=== PATIENT | female | born 1960 | race Caucasian/White ===

== ENCOUNTER 2017-05-13 07:30 | Inpatient (IN) ==
--- OUTSIDE RECORDS SUMMARY | 2017-12-02 05:41 | External Medical Summary | Clinical Summary ---
:1960 Author Organization [facility] Address [address] [place] [address] Care Team Providers Name Role Phone Bhumi Huston APRN Primary Care Provider Source Comments Some departments are not documenting in the electronic medical record. If you do not see the information that you expected, contact Release of Information in the Health Information Management department at [phone] for further assistance in locating additional records.[facility] Current Medications Prescription Sig. Disp. Refills Start Date End Date Status HYDROcodone/acetaminophen TAKE ONE TABLET BY 0 04/21/2017 Active (NORCO) 7.5/325 mg tablet MOUTH THREE TIMES DAILY NEEDED metFORMIN (GLUCOPHAGE) TAKE ONE TABLET BY 1 04/16/2017 Active 500 mg tablet MOUTH TWICE DAILY busPIRone (BUSPAR) 10 mg 8 04/16/2017 Active tablet ibuprofen (MOTRIN) 800 mg TAKE ONE TABLET BY 5 04/16/2017 Active tablet MOUTH EVERY 8 HOURS NEEDED PROAIR HFA 90 INHALE TWO PUFFS 11 04/16/2017 Active mcg/actuation inhaler FOUR TIMES DAILY NEEDED VITAMIN D 50,000 unit 4 04/16/2017 Active capsule acyclovir (ZOVIRAX) 800 TAKE ONE TABLET BY 1 02/14/2017 Active mg tablet MOUTH FOUR TIMES DAILY FOR 5 DAYS Active Problems Problem Noted Date Vulvar cancer (HCC) 05/05/2017 Overview: Family History Medical History Relation Name Comments Depression Brother committed suicide Diabetes Brother Depression Father Heart Disease Father Depression Mother Diabetes Mother Stroke Mother Relation Name Status Comments Brother Father Mother Social History Tobacco Use Types Packs/Day Years Used Date Current Every Day Smoker Cigarettes 1 45 Smokeless Tobacco: Never Used Tobacco Cessation: Ready to Quit: No; Counseling Given: Yes Alcohol Use Drinks/Week oz/Week Comments Yes rarely, once/twice per year Sex Assigned at Date Recorded Not on file Last Filed Vital Signs Vital Sign Reading Time Taken Blood Pressure 152/76 05/06/2017 1:25 PM CDT Pulse 78 05/06/2017 1:25 PM CDT Temperature 36.9 C (98.4 F) 05/06/2017 1:25 PM CDT Respiratory Rate 18 05/06/2017 1:25 PM CDT Oxygen Saturation 99% 05/06/2017 1:25 PM CDT Inhaled Oxygen Concentration - - Weight 88.1 kg (194 lb 3.2 oz) 05/06/2017 1:25 PM CDT Height 167.6 cm (5' 6") 05/06/2017 1:25 PM CDT Body Mass Index 31.34 05/06/2017 1:25 PM CDT Plan of Treatment Health Maintenance Due Date Last Done Comments HEPATITIS C SCREENING 1960 PHYSICAL (COMPREHENSIVE) EXAM 1968 PERTUSSIS VACCINE 1972 HIV SCREENING 1976 TETANUS VACCINE 1978 CERVICAL CANCER SCREENING 1991 BREAST CANCER SCREENING 2001 COLORECTAL CANCER SCREENING 2011 INFLUENZA VACCINE 04/20/2018
--- OUTSIDE RECORDS SUMMARY | 2017-12-02 05:41 | External Medical Summary | Continuity of Care Document ---
:1960 Author Organization [facility] Care Team Providers Name Role Phone [employer] Unavailable Unavailable Encounters Location Location Encounter Encounter Reason Attending ADM DC Status Source Details Type Number For Provider Date Date Visit CA SERIES [id number] CHITO ANDERSEN 05/06 05/06 Active The /2016 [facility] OP SURGERY NAN Active The [facility]
[2017-12-02 05:50] VITALS: BMI 28.8
[2017-12-02] MEDS ORDERED: MELOXICAM 15 MG TABLET PO ONE (06:00)
[2017-12-02] MEDS ORDERED: ACETAMINOPHEN 500 MG TABLET PO ONE (06:00)
[2017-12-02] MEDS ORDERED: FAMOTIDINE PB 20 MG/50 ML BAG IV ONE (06:00)
[2017-12-02] MEDS ORDERED: METOCLOPRAMIDE 10mg/2ml INJECTION IVP ONE (06:00)
[2017-12-02] MEDS ORDERED: TRANEXAMIC ACID 1,000 MG in NS 100 ML IV ONE ×2 (06:00→07:00)
[2017-12-02] MEDS ORDERED: LIDOCAINE 1% (10mg/ml) 2mL INJ PF SDV ID ONE (06:00)
[2017-12-02] MEDS ORDERED: ONDANSETRON 4 MG/2 ML INJECTION IVP ONE (06:00)
[2017-12-02] MEDS: LR 1,000 ML IV SCH ×3 (06:10→09:16)
[2017-12-02] MEDS: NOZIN NASAL SWAB NAS SCH ×5 (06:19→22:07)
[2017-12-02] MEDS ORDERED: VANCOMYCIN 1,000 MG INJECTION ONE (06:35)
[2017-12-02] MEDS ORDERED: FentaNYL 250 MCG/5 ML INJECTION ONE (06:52)
[2017-12-02] MEDS ORDERED: KETAMINE 500 MG/10 ML INJECTION ONE (06:52)
[2017-12-02] MEDS ORDERED: MIDAZOLAM 2mg/2ml INJECTION ONE (06:53)
[2017-12-02] MEDS ORDERED: VANCOMYCIN 1,000 MG INJECTION IAR ONE (06:55)
[2017-12-02] MEDS ORDERED: LIDOCAINE 2% (100mg/5mL) 5ml PF SDV ONE (06:55)
[2017-12-02] MEDS ORDERED: BUPIVACAINE 0.5% (5mg/ml) PF 30ml INJ SDV ONE (06:55)
[2017-12-02] MEDS ORDERED: BUPIVACAINE 0.75%/DEXTROSE 8.5% SPINAL 2 ML AMPULE IJ ONE (06:55)
[2017-12-02] MEDS ORDERED: CEFAZOLIN 1 G INJECTION IVP ONE (07:00)
[2017-12-02] MEDS ORDERED: PROPOFOL 20 ML ONE (07:16)
[2017-12-02] MEDS ORDERED: EPINEPHrine PF 0.25 MG, BUPIVACAINE 0.25% PF 30 ML, KETOROLAC INJ 60 MG in NS 30 ML OPSITE ONE (08:00)
[2017-12-02] MEDS ORDERED: SALINE FLUSH 10ml SYRINGE IV PRN (08:27)
--- NOTE | 2017-12-02 08:52 | Operative Note ---
- Procedure Preoperative Diagnosis: Right hip primary degenerative joint disease Postoperative Diagnosis: Same as preoperative diagnosis. Surgeon: Kobe Dixon MD Senior Care Provider: Silvio Demarco Complications: None. Anesthesia: Spinal. Estimated Blood Loss: See Anesthesia Record. Fluids: Please see Anesthesia Record. Description of Procedure: Mrs. Reyes and her right hip were identified and marked in the preoperative holding area. She was brought back to the operating suite and spinal anesthetic was administered. She was then placed in a lateral decubitus position with her right hip up. The right lower extremity was prepped and draped in my normal sterile fashion. She was slightly short on the right at the knees as expected. Timeout was performed. The [employer] robotic arm was used to assist with the surgery. A pelvic array was placed into the iliac crest through three small incisions. A direct superior approach was utilized. An approximately 12 cm incision was made in the skin and dissection carried down to the muscle fascia which was then split in line with skin incision. The short external rotators were identified and tagged and detached. A capsulotomy was performed and the hip dislocated. A femoral neck osteotomy was performed at the pre-templated level measuring down from the femoral head 60mm. The head was removed and acetabulum exposed. Labrum was removed. The acetabulum was then registered with the robot. The robotic arm was then used to ream with a D1 reamer. The robot then was again used to place a to 2 Trident cup in 40 of tilt and 25 of anteversion. A liner was then placed. The proximal femur was exposed and prepared with a cookie cutter followed by reaming and broaching to a size 2. After trialing we settled on a +5 head. After thorough irrigation a final Accolade 2 size 2 stem with 127 neck was placed. Leg length and offset were checked with the robot and were good. A final +5 ceramic head was placed and the hip reduced. Betadine solution was used to irrigate throughout the case. It was followed by normal saline irrigation. Joint cocktail was injected throughout soft tissue. The capsulotomy was repaired with Ethibond. Short external rotators were also repaired with Ethibond. 1 g of vancomycin powder was placed into the wound. The muscle fascia was then repaired with #1 Vicryl. I then left my bilingual legal assistant to close the subcutaneous tissue with 2-0 Vicryl followed by running 4-0 Monocryl skin followed by Dermabond and a sterile dressing. The patient with any placed back into supine position and taken to recovery room in the care of anesthesia.
[2017-12-02] MEDS ORDERED: ALBUTEROL/IPRATROPIUM 2.5mg-0.5mg/3ml NEB AEROSOL ONE (09:10)
[2017-12-02] MEDS ORDERED: MIDAZOLAM 2mg/2ml INJECTION IVP PRN (09:19)
--- NOTE | 2017-12-02 10:09 | Anesthesia Postoperative Note ---
- Date and Time Date: 12/02/17 Time: 09:45 - Status Patient Participated in Evaluation: Patient Participated in Person Vital Signs: Temperature 97.1 F 12/02/17 09:40 Pulse Rate 61 12/02/17 10:05 Respiratory Rate 15 12/02/17 10:05 Blood Pressure 98/55 12/02/17 10:05 Pulse Oximetry 96 12/02/17 10:05 Respiratory Function: Airway Patent Cardiovascular Function: Regular Pulse EKG: Sinus Rhythm Mental Status: Alert and Oriented Pain Intensity: 0 Hydration: IV Infusing Complications During Recover: None Apparent - Follow-Up Instructions Instructions: Per Surgeon
--- NOTE | 2017-12-02 10:10 | XRay Report ---
Indication: postoperative image PROCEDURE: XR pelvis w/ 1 view RT hip: Encounter: Initial Comparison: CT dated November 24, 2017 Findings: Postoperative changes of right total hip replacement are seen. There is expected postoperative subcutaneous gas. No evidence of hardware failure or acute fracture. No retained radiopaque surgical instruments or sponges seen. Impression: New right total hip prosthesis without evidence of immediate complication. .
--- NOTE | 2017-12-02 10:11 | XRay Report ---
Indication: Cough and wheezing post op. PROCEDURE: XR chest 1V: Encounter: Initial Comparison: February 24, 2017 Findings: New airspace opacity in the left mid to lower lung field. Right lung is clear. No pleural effusion or pneumothorax. Heart size and mediastinal contours are within normal limits. Impression: Left-sided airspace opacity could represent atelectasis, aspiration or pneumonia. .
[2017-12-02] MEDS ORDERED: ALBUTEROL 2.5mg/3ml (0.083%) NEB AEROSOL PRN (10:41)
[2017-12-02] MEDS ORDERED: INSULIN ASPART 100unit/ml INJECTION SQ PRN (10:41)
[2017-12-02] MEDS ORDERED: NOZIN NASAL SWAB NAS ONE (10:41)
[2017-12-02] MEDS ORDERED: ONDANSETRON 4 MG/2 ML INJECTION IVP PRN (10:41)
[2017-12-02] MEDS ORDERED: DiphenhydrAMINE 25 MG CAPSULE PO PRN (10:41)
[2017-12-02] MEDS ORDERED: LORazepam 1 MG TABLET PO PRN (10:41)
[2017-12-02] MEDS ORDERED: DiphenhydrAMINE 50 MG/ML INJECTION IVP PRN (10:41)
[2017-12-02] MEDS: NS 1,000 ML IV SCH (10:46)
[2017-12-02] MEDS: Oxycodone *IR* 5 MG TABLET PO PRN ×4 (11:55→22:08)
[2017-12-02] MEDS: BUSPIRONE 10 MG TABLET PO SCH ×3 (12:57→22:08)
[2017-12-02] MEDS: ACETAMINOPHEN 325 MG TABLET PO SCH ×3 (12:57→22:08)
[2017-12-02] MEDS ORDERED: WARFARIN - PHARMACY CONSULT MC ONE (14:02)
--- NOTE | 2017-12-02 14:18 | Consult Note ---
Consult Information - Data of Consult Consult date: 12/02/17 Requesting Physician: Keny Dixon MD Primary Care Provider: Bhumi Huston APRN - Consult Narrative Reason for consult: SOA, cough History of present illness: Patient is a 57 yo who had TRHA today by Dr. Dixon. She had some coughing during the case and on her way to recovery she developed significant SOA and wheezing and required 3L of O2. She was given some Versed and her sxs resolved. She has already had a CXR performed showing left-sided airspace opacity which could represent atelectasis, aspiration or pneumonia. Currently pt states her breathing is normal. She thinks she had a panic attack. She takes Buspar routinely for anxiety. Patient is very agitated with me asking questions and asks me to leave the room. At this time, Dr. Dixon came in and told her everything went fine with surgery. Following that news, she was a bit more forthcoming with information and at least let me examine her. Past Medical History Medical History: Medical History (Last Reviewed 11/29/17 @ 11:00 by Keny Dixon MD) Anxiety Depression Sleep apnea Vulvar cancer Medical History Updates: DM Type 2. Vit D def Surgical History: Hysterectomy 46, Lt Carpal Tunnel 46, Hemivulvectomy for Vulvar Cancer, Chemotherapy Port Insertion, Eyes 54, Carpal Tunnel Right 56, RTHA by Dr. Dixon 12/05, Tonsillectomy Family History: Family History Mother Diabetes FH: heart attack Stroke Father Emphysema/COPD Family History: As Above - Social History Smoking status: Current every day smoker Alcohol intake frequency: does not drink Household members: none Current occupational status: employed Social history: PCP-Bhumi Huston APRN Review of Systems ROS unobtainable: other (due to pt refusal although she does report she feels her breathing is ok) Medications Home Medications Medication Instructions Recorded Confirmed Type Glucophage (metformin) 500 mg 500 mg PO BID 30 Days #60 tab 02/19/17 12/02/17 History tablet Ibuprofen 800 mg tablet 800 mg PO Q8H PRN 30 Days #90 tab 02/19/17 12/02/17 History [place] 7.5 mg-acetaminophen 325 mg 1 tab PO TID PRN 30 Days #90 tab 02/19/17 History tablet albuterol sulfate HFA 90 1 - 2 spray INH Q4HPRN PRN 25 Days 02/19/17 12/02/17 History mcg/actuation aerosol inhaler #9 Buspirone [Buspar] 20 mg PO QID 11/27/17 12/02/17 History Fenofibrate Nanocrystallized 48 mg PO DAILY 11/27/17 12/02/17 History [Fenofibrate] Docusate Sodium [Colace] 1 cap PO BID 12/02/17 12/02/17 History Ergocalciferol (Vitamin D2) 1 cap PO WEEKLY 12/02/17 12/02/17 History [Vitamin D2] Allergies Allergy/AdvReac Type Severity Reaction Status Date / Time chlorzoxazone Allergy Unknown rash, Verified 12/02/17 06:02 [From Parafon Forte DSC] swelling bupropion [From Wellbutrin] AdvReac Unknown Nausea Verified 12/02/17 06:02 Exam Vital Signs: Temperature 98.4 F 12/02/17 12:27 Pulse Rate 72 12/02/17 13:57 Respiratory Rate 16 12/02/17 13:57 Blood Pressure 139/87 12/02/17 12:27 Pulse Oximetry 97 12/02/17 13:57 Height/Weight/BMI: Height 1.68 m Weight 81.2 kg Body Mass Index 28.8 - Constitutional Present: no acute distress, well nourished, well developed - Routine HEENT Exam Head: Present: normocephalic, atraumatic - Routine Neck Exam Present: supple. Absent: lymphadenopathy - Routine Respiratory Exam Present: CTA bilaterally. Absent: wheezes - Routine Cardiovascular Exam Present: RRR, no murmur - Routine Extremities Exam Present: no edema - Routine Skin Exam Present: dry, warm - Routine Neurological Exam Present: alert, oriented X3, CN II-XII intact - Routine Psychiatric Exam Present: anxious, agitated Results - Labs CBC & Chem 7: 12/02/17 05:54 - Imaging and Cardiology Chest x-ray Additional comments: Date of Exam: 12/02/17 Indication: Cough and wheezing post op. PROCEDURE: XR chest 1V: Findings: New airspace opacity in the left mid to lower lung field. Right lung is clear. No pleural effusion or pneumothorax. Heart size and mediastinal contours are within normal limits. Impression: Left-sided airspace opacity could represent atelectasis, aspiration or pneumonia. Assessment and Plan (1) Shortness of breath Current visit: Yes Status: Acute Assessment and Plan: Assessment Shortness of breath with hypoxia - suspect panic attack as symptoms resolved with relaxation of patient. CXR showing left-sided airspace opacity which could represent atelectasis, aspiration or pneumonia. DM Type 2 KARMEN Depression/Anxiety HLD H/o GERD H/o vulvar cancer (radiation and chemo) Vit D deficiency Plan Start Duonebs and encouraged her to use her IS. Will repeat CXR in am. Check CBC now and in the am. Hold off on atbx at present as pt had a few doses w/ surgery and she is afebrile. Most likely her findings on CXR are r/t atelectasis and her SOA was likely r/t panic attack. Lorazepam prn anxiety sxs. Continue Buspar. Will continue to follow the patient. Thanks for the consult. DVT Prophylaxis: Lovenox Resuscitation Status: Full Code - Physician Narrative Narrative: Date: 12/02/17 Time: 2033 Pt not cooperative with hx or exam. Pt denies any acute complaints and reports she's doing fine other than her hip. Pt denies any cough, sob. Would agree with holding off on any abx as pt seems to be doing well. Hospital Course Summary Disclaimer: The visit summary below is not to be considered part of the above Progress Note.
--- NOTE | 2017-12-02 15:11 | Pharmacy Consult ---
Pharmacy Consult-Warfarin - Consult Information Warfarin protocol: day 1 57 y.o. female post op ortho surgery. Warfarin per pharmacy protocol ordered for post op DVT prophylaxis. Patient is warfarin naive. goal INR range= 1.5 to 2.5 Will give Warfarin 4 mg po x1 dose today. Pharmacy will monitor and adjust dose as needed. Thank you, Delicia Naqvi [facility]
[2017-12-02] MEDS: CEFAZOLIN 2 G in NS 100 ML IV SCH ×2 (15:54→23:24)
[2017-12-02] MEDS ORDERED: WARFARIN 4 MG TABLET PO ONE (16:00)
[2017-12-02] MEDS: NAPROXEN 220 MG TABLET PO SCH (17:25)
[2017-12-02] MEDS ORDERED: NICOTINE 21 MG PATCH TD PRN (18:57)
[2017-12-02] MEDS ORDERED: SENNOSIDES 8.6 MG TABLET PO SCH (21:00)
[2017-12-02] MEDS ORDERED: ASPIRIN *EC* 81 MG TABLET PO SCH (21:00)
[2017-12-02] MEDS: ENOXAPARIN 40 MG/0.4 ML INJECTION SQ SCH (22:07)
[2017-12-02] MEDS: DOCUSATE SODIUM 100 MG CAPSULE PO SCH (22:08)
[2017-12-02] MEDS: ALBUTEROL/IPRATROPIUM 2.5mg-0.5mg/3ml NEB AEROSOL SCH ×2 (22:29→23:59)
[2017-12-02 23:32] VITALS: BP 113/66
[2017-12-03] MEDS: NS 1,000 ML IV SCH (00:30)
[2017-12-03] MEDS: Oxycodone *IR* 5 MG TABLET PO PRN ×3 (03:33→11:56)
[2017-12-03] MEDS: NOZIN NASAL SWAB NAS SCH (06:21)
[2017-12-03] MEDS: ALBUTEROL/IPRATROPIUM 2.5mg-0.5mg/3ml NEB AEROSOL SCH ×2 (07:42→12:02)
[2017-12-03] MEDS ORDERED: FENOFIBRATE 48 MG TABLET PO SCH (08:00)
--- NOTE | 2017-12-03 08:08 | Orthopedic Progress Note ---
Date: Date: 12/03/17 Time: 801 Subjective/Severity of Illness: Elisabeth is doing well. She went outside to smoke which helps her nerves. Pain is well controlled but she would prefer to take her [place] when she goes home. We discussed anticoagulation options and she wants to use Coumadin. Pt has been mobile with good tolerance. Denies calf pain, chest pain, dyspnea or other concerns. She is off Oxygen this AM. CXR done this AM. Orthopedic Exam Vital signs: Temperature 97.3 F 12/03/17 03:40 Pulse Rate 72 12/03/17 03:40 Respiratory Rate 16 12/03/17 03:40 Blood Pressure 113/66 12/03/17 03:40 Pulse Oximetry 89 L 12/03/17 03:40 - Constitutional General Appearance: Present: alert, cooperative, no acute distress - Respiratory Exam Present: non-labored - Cardiovascular Exam Present: pedal pulses intact - Extremities Exam Present: pulses intact. Absent: calf tenderness - Dressing Dressing: dry, intact, no drainage - Integumentary Exam Present: pink, warm, dry - Neurological Exam Present: intact to light touch, no deficits - Psychiatric Exam Present: alert - Labs Result Diagrams: 12/02/17 05:54 Orthopedic Assessment and Plan (1) Primary osteoarthritis of right hip Status: Acute Assessment and Plan: Coumadin / Lovenox for VTE prophylaxis. Will continue for 30 days. SCD's for added coverage. Pt has been encouraged not to smoke but she continues. PT/OT services to improve independent function. Discharge Planning per Case Management. Anticipate discharge today if cleared by hospitalist service. - Anticoagulation Therapy Anticoagulation: Lovenox 40 mg SQ Daily x 30 days from day of surgery - Additional Diagnoses Diabetes: resume oral medications, other (Blood sugars are 89-168. ) Hospital Course Summary Disclaimer: The visit summary below is not to be considered part of the above Progress Note.
--- NOTE | 2017-12-03 08:23 | Discharge Summary ---
Orthopedic Discharge Info Date of admission: 12/02/17 05:33 Anticipated date of discharge: 12/03/17 Primary care physician: Bhumi Huston APRN Attending Physician: Keny Dixon MD Consults: 12/02/17 05:44 Consult to Anesthesiology [CONS] Routine Reason For Exam: Preoperative Assessment 12/02/17 10:41 Case Management Consult [CONS] Routine Reason For Exam: Discharge Planning DME-Walker [CONS] Routine Height: 5 ft 6 in Weight: 81.2 kg Total Joint Outpatient Therapy [CONS] Routine Comment: Remove dressing in 2 weeks 12/02/17 13:14 Physician [Physician Consult] [CONS] Routine Consulting Provider: Elisabeth Marin Reason For Exam: Chest xray changes, Cough, Post op. 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 Further details of this is found in the admission H&P. Orthopedic Hospital Course Hospital course: 12/03/17 08:16 After appropriate preoperative clearance and signing of operative consent, the patient was given IV antibiotics, according to orthopedic protocol. The patient was taken to the operating room and underwent elective right total hip arthroplasty on 12/02/17. Following surgery, antibiotics were discontinued less than 24 hours according to joint protocol. Lovenox and Coumadin were initiated and SCDs added for DVT prevention. Lovenox 40mg SQ daily will be used for 30 days after surgery. She will need to stay on Lovenox for 30 days and then take aspirin 81mg BID for another 2 weeks after stopping the Lovenox. The dressing was clean, dry, and intact. Pain control was obtained via multimodal approach. Pt wants to take her [place] after discharge in place of Oxycodone. Bowel motivation addressed with scheduled and PRN medications. Early mobilization was initiated through PT services. Discharge arrangements made by a collaborative effort between the patient and Case Management. Pt developed a cough and dyspnea after surgery and CXR was obtained. She had some changes consistent with atelectasis vs pneumonia. Hospitalist was consulted to evaluate this. Pt remained afebrile and showed no signs of aspiration or active infection. Repeat CXR the next morning was normal. Pt has been encouraged to stop smoking but refuses to do so. She is breathing well and is on RA. WBC is normal and she is Afebrile. Hgb was normal post op. Will f/u with her PCP after discharge. Follow-up is scheduled in 2-3 weeks. Discharge instructions given by orthopedic providers and nursing staff at discharge. Discharge condition was good. 12/03/17 13:34 Care extended to > 2 midnight stays?: No Discharge Plan - Med Rec/Dispo Referrals/Follow Up: Bhumi Huston APRN [Primary Care Provider] - 1 Week Keny Dixon MD [Physician] - 12/24/17 1:00 pm [place] Instructions: [facility] Ortho Postop Instructions Additional Instructions: SENIOR BEHAVIORAL SCIENTIST LOVENOX INJECTIONS AT [facility]. THEY WILL COST $20. GIVE YOURSELF ONE INJECTION EACH DAY BEGINNING DECEMBER 04. [facility] ON 12/08/2017 AT 12:15PM FOR PHYSICAL THERAPY EVAL. PHONE [phone] OPTION 3 Prescriptions: New Docusate Sodium [Colace] 100 mg PO BID cap Hydrocodone/APAP 7.5/325 [[place] 7.5/325] 1 - 2 tab PO Q6H PRN #50 tab PRN Reason: Pain Naproxen [Aleve (Naproxen) 220 mg] 440 mg PO BIDWM tab PEG 3350 17gm PACKET [Miralax] 17 gm PO DAILY packet Milk of Magnesia [Mom] 30 ml PO DAILY udc Enoxaparin [Lovenox] 40 mg SQ DAILY #30 syringe Continue Buspirone [Buspar] 20 mg PO QID Ergocalciferol (Vitamin D2) [Vitamin D2] 1 cap PO WEEKLY Fenofibrate Nanocrystallized [Fenofibrate] 48 mg PO DAILY Docusate Sodium [Colace] 1 cap PO BID Albuterol Sulfate [Proventil Hfa 90mcg] 1 - 2 spray INH Q4HPRN PRN 25 Days #9 PRN Reason: Wheezing [place] 7.5 mg-acetaminophen 325 mg tablet 1 tab PO TID PRN 30 Days #90 tab PRN Reason: Pain Ibuprofen 800 mg tablet 800 mg PO Q8H PRN 30 Days #90 tab PRN Reason: Pain Glucophage (metformin) 500 mg tablet 500 mg PO BID 30 Days #60 tab - Disposition 01 Discharged Home, Self-Care - Dismissal Complete Discharge Instructions are:: Complete, Incomplete
[2017-12-03 08:29] VITALS: PULSE 60; TEMP 97.6
[2017-12-03] MEDS: ACETAMINOPHEN 325 MG TABLET PO SCH ×2 (08:45→12:58)
[2017-12-03] MEDS: NAPROXEN 220 MG TABLET PO SCH (08:45)
[2017-12-03] MEDS: BUSPIRONE 10 MG TABLET PO SCH ×2 (08:46→12:58)
[2017-12-03] MEDS: DOCUSATE SODIUM 100 MG CAPSULE PO SCH (08:51)
[2017-12-03] MEDS ORDERED: LORazepam 1 MG TABLET PO PRN (08:52)
[2017-12-03] MEDS ORDERED: POLYETHYL GLYCOL 3350 17gm PACKET PO SCH (09:00)
[2017-12-03] MEDS ORDERED: NICOTINE PATCH REMOVAL TD SCH (09:00)
--- NOTE | 2017-12-03 09:10 | XRay Report ---
INDICATION: cough SOA PROCEDURE: CHEST 2-VIEWS UPRIGHT (PA & LAT) Encounter: Initial COMPARISON: December 02, 2017 FINDINGS: Aeration of the left lung has improved. Right lung remains clear. There is no pleural effusion or pneumothorax. The heart size, mediastinal contours and pulmonary vascularity are within normal limits. There is no significant skeletal abnormality. IMPRESSION: Improving aeration of the left lung. .
--- NOTE | 2017-12-03 09:13 | Progress Note ---
- Date 12/03/17 Subjective: Elisabeth is seen today in follow up. She is up in a chair, she is very tearful. Reports severe anxiety this morning. She just got her routine Buspar. D/W RN- will change Lorazepam to oral dosing as her IV is out. She has not been agreeable to labs this morning as of yet. She reports pain is fairly well controlled on current. Chart is reviewed for collateral information. Objective Vital signs: Temperature 97.6 F 12/03/17 08:28 Pulse Rate 60 12/03/17 08:28 Respiratory Rate 16 12/03/17 08:47 Blood Pressure 113/66 12/03/17 03:40 Pulse Oximetry 98 12/03/17 08:28 Height/Weight/BMI: Height 1.68 m Weight 81.2 kg Body Mass Index 28.8 - Constitutional Present: moderate distress (Anxious, tearful ), well nourished, well developed, obese, cooperative - Routine HEENT Exam Head: Present: normocephalic, atraumatic Eye: Present: EOMI, PERRL ENT: Present: mucous membranes moist - Routine Respiratory Exam Present: CTA bilaterally, distant breath sounds (Bases). Absent: rales, rhonchi , crackles - Routine Cardiovascular Exam Present: RRR, S1, S2, no murmur - Routine Abdominal Exam Present: soft, normoactive bowel sounds, non distended, non tender - Routine Extremities Exam Present: no edema, tenderness (Left post-op) - Routine Musculoskeletal Exam Musculoskeletal: Present: no clubbing or cyanosis, surgical scar - Routine Skin Exam Present: intact, dry, warm - Routine Neurological Exam Present: alert, oriented X3, moving all extremities - Routine Psychiatric Exam Present: cooperative, anxious Results - Labs CBC & Chem 7: 12/03/17 09:50 12/03/17 09:50 - Imaging and Cardiology Chest x-ray Status: image reviewed by me, pending Additional comments: Left atelectasis much improved. Assessment and Plan (1) Shortness of breath Current visit: Yes Status: Acute Assessment and Plan: Assessment s/p elective right TIFFANY Shortness of breath with hypoxia - suspect panic attack as symptoms resolved with relaxation of patient. CXR showing left-sided airspace opacity which could represent atelectasis, aspiration or pneumonia. DM Type 2 KARMEN Depression/Anxiety HLD H/o GERD H/o vulvar cancer (radiation and chemo) Vit D deficiency Plan 12/03/17 Patient appears to be doing well from a pulmonary perspective. CXR shows significant improvement overnight. Continue I.S. and ambulation. She is not febrile. Unable to get CBC as of yet- would recommend that we try to see that before she dismisses. Change Lorazepam to oral- dose to be given at time of visit this morning. Patient is otherwise doing well. If sats remain stable and no fever, likely will be able to dismiss later today. DVT Prophylaxis: Lovenox, Coumadin Resuscitation Status: Full Code - Physician Narrative Narrative: Date: 12/03/17 Time: 1410 Pt not very cooperative and refusing labs and exam. Pt denies any sob or cp. Pt' s respiratory status seems to be stable and has recovered. Would not recommend any abx at this time and just to follow up if any sx's develop. Hospital Course Summary Disclaimer: The visit summary below is not to be considered part of the above Progress Note. Hospital Course: 12/03/17 Patient appears to be doing well from a pulmonary perspective. CXR shows significant improvement overnight. Continue I.S. and ambulation. She is not febrile. Unable to get CBC as of yet- would recommend that we try to see that before she dismisses. Change Lorazepam to oral- dose to be given at time of visit this morning. Patient is otherwise doing well. If sats remain stable and no fever, likely will be able to dismiss later today.
[2017-12-03] MEDS ORDERED: SENNOSIDES 8.6 MG TABLET PO PRN (09:18)
--- NOTE | 2017-12-03 10:54 | Pharmacy Consult ---
Pharmacy Consult-Warfarin - Laboratory Information 12/03/17 12/03/17 09:50 09:50 Hgb 13.4 Hct 39.9 INR 1.03 - Consult Information COUMADIN CONSULT (Recurring): 57 yr old female admitted for orthopedic surgery- Right Total Hip Pt is 5'6" and weights 81 kg. Warfarin is for DVT prophylaxis post orthopedic surgery. Patient currently on Enoxaparin 40 mg SQ daily until INR is therapeutic DATE INR DOSE 12/02/17 N/A 4 MG 12/03/17 1.03 5 MG will be given. INR target therapeutic range is between 2-3 5 mg daily is the estimated daily dose. This patient does smoke cigarettes and if she continues to do so it can affect the INR causing warfarin requirements to vary. Thank you. Sneha Pacheco, PharmD
[2017-12-03] MEDS ORDERED: WARFARIN 5 MG TABLET PO SCH (12:00)
[2017-12-03] MEDS ORDERED: METFORMIN 500 MG TABLET PO SCH (12:00)
[2017-12-03 12:06] VITALS: RESP 16; O2SAT 99
[2017-12-03] MEDS: ENOXAPARIN 40 MG/0.4 ML INJECTION SQ SCH (13:42)
[2017-12-04] MEDS ORDERED: BISACODYL 10 MG SUPPOSITORY RECTALLY SCH (20:00)
== END 2017-12-03 14:00 | disposition home or self-care (01) | DRG 470 ==
LOC: NMC.PERIOP 12-02 05:33 → SRG 12-02 10:31
PROVIDERS: ADMIT Orthopaedic Surgery; ATTEND Orthopaedic Surgery